=== PATIENT | female | born 1965 | race Two or more races ===

== ENCOUNTER 2021-09-07 10:47 | Emergency (ER) | payer SELFPAY ==
[~2021-09-07] VITALS: Ht 167.6 cm; Wt 82.0 kg
[2021-09-07] MEDS ORDERED: METFORMIN (10:50)
[2021-09-07] MEDS ORDERED: HYDROCODONE/ACETAMINOPHEN 5/325MG TABLET PO STA (12:07)
[2021-09-07] MEDS ORDERED: KETOROLAC 60MG/2ML VIAL IM STA (12:07)
[2021-09-07 12:19] VITALS: BP 158/81
[2021-09-07] MEDS ORDERED: NAPR-681 PO (12:25)
[2021-09-07] MEDS ORDERED: TRAM50TA3 MT (12:25)
== END 2021-09-07 13:10 | disposition home or self-care (01) ==
LOC: ER 10:47
DX: M25.511 Pain in right shoulder (principal); M25.551 Pain in right hip; E11.9 Type 2 diabetes mellitus without complications; M25.521 Pain in right elbow; W01.0XXA Fall on same level from slipping, tripping and stumbling without subsequent striking against object, initial encounter; Y93.89 Activity, other specified; Y92.89 Other specified places as the place of occurrence of the external cause; Y99.8 Other external cause status
CPT/HCPCS: 72070; 73030; 73070; 73090; 73502; 96372; 99284; J1885; A4565